=== PATIENT | female | born 1965 | race Caucasian/White ===

== ENCOUNTER → 2023-02-06 | Outpatient (CLI) | payer MEDICARE, OTHER | END | disposition home or self-care (01) | LOC: LABWHC1 10:18 | PROVIDERS: ATTEND Internal Medicine Critical Care Medicine | DX: Z87.01 Personal history of pneumonia (recurrent) (principal) | CPT/HCPCS: 36415; 82784; 82785 ==

== ENCOUNTER 2023-03-27 11:37 | Day surgery (SDC) | payer MEDICARE, OTHER ==
[2023-03-26 10:36] VITALS: BMI 46.0
[~2023-03-27 11:37] MED LIST: ATROPINE SULFATE 0.4 MG/ML 1 ML VIAL IM ONE; LACTATED RINGERS 1,000 ML IV SCH
[2023-03-27] MEDS ORDERED: LACTATED RINGERS 1,000 ML IV ONE (12:16)
[2023-03-27 12:32] LABS: Glucose,Whole Blood 196 mg/dL (70-110)
[2023-03-27 12:40] VITALS: TEMP 98
[2023-03-27] MEDS ORDERED: HYDROCORTISONE SUCCINATE 100 MG/2 ML VIAL IVP ONE (12:40)
[2023-03-27] MEDS ORDERED: PROPOFOL 10 MG/ML 20 ML VIAL IV ONE (12:43)
[2023-03-27] MEDS ORDERED: KETAMINE HCL IN 0.9 % NACL 50 MG/5 ML SYRINGE ONE (12:43)
[2023-03-27] MEDS ORDERED: MIDAZOLAM 2 MG/2 ML VIAL ONE (12:43)
[2023-03-27] MEDS ORDERED: LIDOCAINE 1% INJ 10MG/ML (20 ML MDV) ONE (12:43)
[2023-03-27 14:34] VITALS: BP 128/72; PULSE 89; RESP 24
--- NOTE | 2023-03-27 20:14 | PCN ---
PROCEDURE NOTE PROCEDURES PERFORMED: The patient had a bronchoscopy, airway examination, therapeutic lavage, BAL right lower lobe, foreign body removal right lower lobe. PREOPERATIVE DIAGNOSES: Recurrent pneumonia, tracheobronchomalacia. POSTOPERATIVE DIAGNOSES: Recurrent pneumonia, tracheobronchomalacia including foreign body, right lower lobe. There was informed consent. There was universal timeout. [facility] CAREGIVER: Dr. Adrienne Carrington. ANESTHESIA: Provided general anesthesia. DESCRIPTION OF PROCEDURE: Once the patient was anesthetized, and being fully monitored, the bronchoscope was inserted through the right nostril. It passed through the right nasopharynx into the oropharynx. The hypopharynx was identified. The hypopharyngeal area was a bit crowded. There were some secretions noted. Anterior commissure, true cords, false cords, arytenoids right and left, epiglottis, vallecula, all appeared relatively normal otherwise. The glottic opening was topicalized. The bronchoscope was pushed through the glottic opening into the trachea. There was mild to moderate tracheomalacia. Tracheal fawad was sharp. The right and left mainstem were topicalized. The left upper lobe and its 2 segments, the lingula and its 2 segments, the left lower lobe and its 4 segments were all found to be normal. The right upper lobe and its 3 segments were normal. The distal portions of the bronchus intermedius, revealed evidence of malacia. 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 This is likely related to trach to the tip bronchomalacia. In the right lower lobe, there was a yellow foreign body. I was able to snag it with the biopsy forceps. It will be sent to the laboratory for analysis. We did a BAL in the right lower lobe. The airways were mildly erythematous. There was some hyperemia. There was some mucosal friability. The secretions were mostly frothy or foamy. There was no definite mass or tumor. The patient tolerated the procedure well. The BAL took place in the right lower lobe. The fluid will be sent for analysis. There was no immediate complication. The bronchoscope was withdrawn. The patient will be recovered. MMODL / IJN: [id number] /
[2023-03-28 05:44] LABS: Appearance,BF Bloody (Clear); RBC, Body Fluid 13350 /UL (0-2000)
[2023-03-28 09:32] LABS: Nucleated Cells, Body Fluid 1100 /UL
== END 2023-03-27 14:15 | disposition home or self-care (01) ==
LOC: ORWHC2ENDO 11:37
PROVIDERS: ATTEND Internal Medicine Critical Care Medicine
DX: J98.09 Other diseases of bronchus, not elsewhere classified (principal); J44.9 Chronic obstructive pulmonary disease, unspecified; I10 Essential (primary) hypertension; E78.5 Hyperlipidemia, unspecified; G47.33 Obstructive sleep apnea (adult) (pediatric); E11.9 Type 2 diabetes mellitus without complications; E07.9 Disorder of thyroid, unspecified; Z79.51 Long term (current) use of inhaled steroids; Z79.85 Long-term (current) use of injectable non-insulin antidiabetic drugs; Z79.4 Long term (current) use of insulin; Z79.84 Long term (current) use of oral hypoglycemic drugs; Z79.890 Hormone replacement therapy; Z79.899 Other long term (current) drug therapy; Z88.1 Allergy status to other antibiotic agents; Z88.5 Allergy status to narcotic agent; Z88.8 Allergy status to other drugs, medicaments and biological substances; Z87.01 Personal history of pneumonia (recurrent); Z98.890 Other specified postprocedural states
CPT/HCPCS: 31635; 88108; 88305; 89050; 87070; 87205; 87116; 87102; 87206; 31625; 31624; J2250; J0461; J1720; J2001; J2704; 88304

== ENCOUNTER → 2024-06-30 | Outpatient (CLI) | payer MEDICARE, OTHER ==
--- NOTE | 2024-07-12 21:53 | P.PCN ---
Date of Procedure: 06/30/24 Operative Findings: Home sleep study testing Date of service is 06/30/2024 History This is a 59-year-old female patient, history of severe asthma, diabetes mellitus, hypertension, bipolar disorder. The patient also has history of obstructive sleep apnea. During her last visit in the office, she stated that her CPAP machine is nonfunctional and she has not used her machine for several years. Based on that, a home sleep study was ordered. She has history of snoring and excessive daytime sleepiness and napping throughout the day. Pertinent physical findings Body mass size is 47.8 Technical description The [employer] system was used to complete his home sleep study. This is a type III home sleep study evaluation. The total recording duration was 7 hours and 17 minutes. The study started at 10:12 PM and ended at 5:30 AM. There was a total of 7 hours and 5 minutes of flow monitoring and 6 hours and 47 minutes of oxygen saturation monitoring. This was an adequate study Results The respiratory analysis showed a total of 1 obstructive apnea and 7 obstructive hypopneas. The resulting AHI was 1.1 Oxygenation analysis The baseline pulse ox while awake was 98%. Average pulse ox during sleep was 95%. Minimum pulse ox was 70% and the patient spent approximately 1 hour and 1 minute of the sleep time below pulse ox of 89%. Cardiac analysis Average heart rate was 70 with a minimum heart rate of 49 and a maximum rate of 99 Assessment Primary snoring, no evidence of any significant sleep breathing disorder. AHI is 1.1 Nocturnal oxygen desaturation with a minimum pulse ox of 70% Morbid obesity with a BMI of 47.8 Severe asthma Bipolar disorder Hyperlipidemia Hypothyroidism Hypertension Hiatal hernia Plan Based on the current home sleep study. No significant sleep apnea is observed and this is despite her previous history of EUGENIO. If clinically indicated, consider today for polysomnography to confirm those findings. No need for CPAP therapy based on this current home sleep study.
== END ==
LOC: 3 N SLEEP 10:41
PROVIDERS: ATTEND Internal Medicine Critical Care Medicine
DX: E66.01 Morbid (severe) obesity due to excess calories (principal); J45.909 Unspecified asthma, uncomplicated; I10 Essential (primary) hypertension; E03.9 Hypothyroidism, unspecified; F31.9 Bipolar disorder, unspecified; E78.5 Hyperlipidemia, unspecified; K44.9 Diaphragmatic hernia without obstruction or gangrene; Z68.42 Body mass index [BMI] 45.0-49.9, adult; Z88.8 Allergy status to other drugs, medicaments and biological substances; Z88.1 Allergy status to other antibiotic agents; Z88.5 Allergy status to narcotic agent